=== PATIENT | male | born 1995 | race Caucasian/White ===

== ENCOUNTER 2017-03-21 15:25 | Emergency (ER) | payer OTHER | END 2017-03-21 17:26 | disposition home or self-care (01) | LOC: ER 15:25 | DX: N20.0 Calculus of kidney (principal); J45.909 Unspecified asthma, uncomplicated | CPT/HCPCS: 36415 ==

== ENCOUNTER 2017-03-24 18:31 | Emergency (ER) | payer OTHER | END 2017-03-25 00:19 | disposition home or self-care (01) | LOC: ER 18:31 | DX: R10.12 Left upper quadrant pain (principal); R11.0 Nausea; R10.9 Unspecified abdominal pain; Z87.442 Personal history of urinary calculi; Z79.899 Other long term (current) drug therapy | CPT/HCPCS: 36415; 96361; 96374; 96375 ==